=== PATIENT | male | born 1980 | race Caucasian/White ===

== ENCOUNTER 2019-05-03 22:22 | Emergency (ER) | payer SELFPAY ==
[~2019-05-03] VITALS: Ht 172.7 cm; Wt 72.6 kg
--- NOTE | 2019-05-03 22:29 | NUR ---
PT PATRICK FROM STREET, FOUND SLEEPING ON BUS. +ETOH. PT OPENS EYES TO PAINFUL STIMULI. VITAL SIGNS STABLE. RESPIRATIONS EVEN AND UNLABORED. SKIN WARM AND INTACT. NO ACUTE DISTRESS NOTED AT THIS TIME. PLACED ON CONTINUOUS ROBOTICS ENGINEER, WILL CONTINUE TO MONITOR
--- NOTE | 2019-05-03 23:19 | NUR ---
FLOOR LAYER AT BEDSIDE FOR BLOOD DRAW
--- NOTE | 2019-05-03 23:21 | NUR ---
pt refused blood draw, falling back to sleep w/ resp even & unlabored, nad noted.
--- NOTE | 2019-05-04 00:30 | NUR ---
Pt agrees to blood draw, unable to provide urine sample at this time. Urinal provided. Instruct pt to provide urine as soon as able.
[2019-05-04 00:52] LABS: BASOPHILS % (AUTO) 0.5 % (0.0-2.0); EOSINOPHILS % (AUTO) 0.4 % (0.0-6.0); HEMATOCRIT 40 % (39-51); HEMOGLOBIN 13.5 g/dL (13.5-17.5); LYMPHOCYTES # (AUTO) 0.8 /CMM (0.8-4.8); LYMPHOCYTES % (AUTO) 11.1 % (20.0-44.0); MEAN CORPUSCULAR HGB CONC 34 g/dl (31.0-36.0); MEAN CORPUSCULAR VOLUME 95 fL (80-96); MONOCYTES # (AUTO) 0.2 /CMM (0.1-1.30); MONOCYTES % (AUTO) 2.8 % (2.0-12.0); NEUTROPHILS % (AUTO) 85.2 % (43.0-81.0); PLATELET COUNT (AUTO) 207 /CMM (150-450); RED BLOOD CELL COUNT(AUTO) 4.19 MIL/uL (4.5-6.0)
[2019-05-04 01:02] LABS: CALCIUM, SERUM 7.8 mg/dL (8.5-10.1); CREATININE 0.7 mg/dL (0.6-1.3); POTASSIUM 3.8 mmol/L (3.5-5.1)
[2019-05-04 01:07] LABS: ALBUMIN 3.1 g/dL (3.4-5.0); BILIRUBIN,DIRECT 0.1 mg/dL (0.0-0.2); BILIRUBIN,TOTAL 0.3 mg/dL (0.2-1.0); TOTAL PROTEIN, SERUM 6.7 g/dL (6.4-8.2)
[2019-05-04 01:08] LABS: SALICYLATE 1.1 mg/dL (2.8-20.0)
--- NOTE | 2019-05-04 01:28 | NUR ---
PT ON CONTINUOUS 2 L/MIN O2 VIA NC, PULSE-OX W/ CARDIAC MONITORING, LYING IN BED W/ RESP EVEN & UNLABORED, SNORING W/ NAD NOTED. BED LOW TO GROUND W/ SIDERAILS UP FOR SAFETY.
--- NOTE | 2019-05-04 02:25 | NUR ---
PT CONTINUES TO SLEEP W/ RESP EVEN & UNLABORED, NAD NOTED. ON CONTINUOUS MONITORING.
--- NOTE | 2019-05-04 05:36 | NUR ---
PT RESTING COMFORTABLY IN BED. VITAL SIGNS STABLE. NO ACUTE DISTRESS NOTED AT THIS TIME. STILL ON CONTINUOUS NECK FITTER AND PULSE OX, WILL CONTINUE TO MONITOR
--- NOTE | 2019-05-04 05:58 | NUR ---
URINE COLLECTED AND SENT TO LAB
[2019-05-04 06:02] LABS: APPEARANCE,URINE Clear (CLEAR); BILIRUBIN,URINE Negative (NEGATIVE); BLOOD, URINE Negative Ery/uL (NEGATIVE); COLOR,URINE Yellow (YELLOW); KETONES,URINE 15 (NEGATIVE); LEUKOCYTE ESTERASE ,URINE Negative (NEGATIVE); NITRITE, URINE Negative (NEGATIVE); PH,URINE 5.5 (5.0-8.0); PROTEIN,URINE Negative (NEGATIVE); UGLUCOSE Negative (NEGATIVE); UROBILINOGEN,URINE 0.2 EU/dL (0.2)
--- NOTE | 2019-05-04 06:22 | NUR ---
Patient ambulatory w/ steady gait, resp even & unlabored, denies any pain w/ nad noted. pt offered and refusing any referrals for shelters and requests to go back to community. IV removed. Catheter intact and site benign. Pressure and 4x4 applied to site. No bleeding noted.Patient discharged back to community in stable condition. Written and verbal after care instructions given. Patient verbalizes understanding of instruction.
[2019-05-04 06:23] VITALS: BP 148/90
[2019-05-04 08:07] LABS: BACTERIA,URINE None seen /HPF (None Seen); RBC,URINE NONE SEEN /HPF (0-2); SQUAMOUS EPITHELIAL CELL,UR Rare /HPF (None Seen); WBC,URINE 0-2 /HPF (0-3)
== END 2019-05-04 06:23 | disposition home or self-care (01) ==
LOC: EDBD 22:25 → ER 22:25
DX: F10.129 Alcohol abuse with intoxication, unspecified (principal); Y90.9 Presence of alcohol in blood, level not specified
CPT/HCPCS: 36415; 80048; 80076; 80305; 80307; 80329; 81001; 85025; 99283; G0480; 81000-TC

== ENCOUNTER 2019-05-17 04:43 | Emergency (ER) | payer OTHER ==
[~2019-05-17] VITALS: Ht 182.9 cm; Wt 104.3 kg
--- NOTE | 2019-05-17 05:17 | NUR ---
XRAY AT BEDSIDE.
--- NOTE | 2019-05-17 05:22 | NUR ---
FUNMI WALKED IN. AAOX3. BREATHING EVEN AND UNLABORED. AMBULATORY. C/O SUICIDAL IDEATION. PT VERBALIZED THAT HE HAS BEEN DRINKING SIONCE YESTERDAY AT ATTEMPTED TO RUN INTO TRAFFIC. PT DOES NOT RECALL ANYTHING AFTER THAT. PT RECALL WAKIN GUP AT THE POLICE STATION ON DRUNK HOLD. PT IS ALSO COMPLAINING OF RIGHT HAND PAIN UPON WAKING UP. NOTED BUMB ON THE POSTERIOR LATER ASPECT OF THE HAND WHICH IS PAINFUL TO TOUCH. R HAND 5TH DIGIT IS BEND WITH LIMITED ROM NOTED. TO ER BED 13. AWITING ORDERS.
[2019-05-17 05:25] LABS: BASOPHILS # (AUTO) 0.1 /CMM (0.0-0.2); BASOPHILS % (AUTO) 0.7 % (0.0-2.0); EOSINOPHILS % (AUTO) 0.4 % (0.0-6.0); HEMATOCRIT 48 % (39-51); HEMOGLOBIN 16.1 g/dL (13.5-17.5); LYMPHOCYTES # (AUTO) 2.2 /CMM (0.8-4.8); LYMPHOCYTES % (AUTO) 14.7 % (20.0-44.0); MEAN CORPUSCULAR HGB CONC 34 g/dl (31.0-36.0); MEAN CORPUSCULAR VOLUME 95 fL (80-96); MONOCYTES # (AUTO) 1.1 /CMM (0.1-1.30); MONOCYTES % (AUTO) 7.1 % (2.0-12.0); NEUTROPHILS # (AUTO) 11.6 /CMM (1.8-8.9); NEUTROPHILS % (AUTO) 77.1 % (43.0-81.0); PLATELET COUNT (AUTO) 266 /CMM (150-450); RED BLOOD CELL COUNT(AUTO) 5.02 MIL/uL (4.5-6.0)
--- NOTE | 2019-05-17 05:25 | NUR ---
PROPERTY WORKER AT BEDSIDE FOR BLOOD DRAW.
[2019-05-17 05:39] LABS: ALANINE AMINOTRANSFERASE 62 U/L (12-78); ALKALINE PHOSPHATASE 142 U/L (46-116); ASPARTATE AMINOTRANSFERASE 35 U/L (15-37); BILIRUBIN,DIRECT 0.1 mg/dL (0.0-0.2); BILIRUBIN,TOTAL 0.6 mg/dL (0.2-1.0); CALCIUM, SERUM 9.2 mg/dL (8.5-10.1); CARBON DIOXIDE 21 mmol/L (21-32); CHLORIDE 103 mmol/L (98-107); CREATININE 0.9 mg/dL (0.6-1.3); GLUCOSE 101 mg/dL (74-106); POTASSIUM 3.8 mmol/L (3.5-5.1); SODIUM SERUM 138 mmol/L (136-145); TOTAL PROTEIN, SERUM 8.3 g/dL (6.4-8.2); UREA NITROGEN, BLOOD 11 mg/dL (7-18)
[2019-05-17 05:41] LABS: ACETAMINOPHEN 0 ug/ml (10-30); ALCOHOL, BLOOD < 3 mg/dL (0-0)
[2019-05-17] MEDS ORDERED: IBUPROFEN 600 MG TABLET PO ONE ×2 (06:47→07:00)
--- NOTE | 2019-05-17 07:46 | NUR ---
DORETHA CAM CALLED FOR A 1:1 SITTER
--- NOTE | 2019-05-17 07:55 | NUR ---
1:1 SITTER AT BEDSIDE
--- NOTE | 2019-05-17 07:55 | NUR ---
WANDED BY SECURITY
--- NOTE | 2019-05-17 09:25 | NUR ---
ORACLE ETL DEVELOPER TERESA EDWARDS AT BEDSIDE
--- NOTE | 2019-05-17 10:05 | NUR ---
PROVIDED W MEAL TRAY, PT TOLERATING PO WELL.
[2019-05-17 11:26] LABS: BILIRUBIN,URINE Negative (NEGATIVE); BLOOD, URINE Negative Ery/uL (NEGATIVE); COLOR,URINE Yellow (YELLOW); KETONES,URINE Negative (NEGATIVE); LEUKOCYTE ESTERASE ,URINE Negative (NEGATIVE); NITRITE, URINE Negative (NEGATIVE); PH,URINE 5.5 (5.0-8.0); PROTEIN,URINE Trace mg/dl (NEGATIVE); UGLUCOSE Negative (NEGATIVE); UROBILINOGEN,URINE 0.2 EU/dL (0.2)
[2019-05-17 11:27] LABS: APPEARANCE,URINE Hazy (CLEAR)
[2019-05-17 11:34] LABS: BACTERIA,URINE None seen /HPF (None Seen); RBC,URINE 0-1 /HPF (0-2); SQUAMOUS EPITHELIAL CELL,UR Rare /HPF (None Seen); WBC,URINE 0-2 /HPF (0-3)
[2019-05-17 11:35] LABS: URINE AMORPHOUS URATE Moderate /HPF (None Seen)
--- NOTE | 2019-05-17 11:54 | NUR ---
FAXED URINE TOXICOLOGY REPORT TO [facility] [phone]
--- NOTE | 2019-05-17 12:17 | NUR ---
PT ACCEPTED TO DR. VANN [phone] Addendum: 05/17/19 at 1237 by CATHERINE PT [facility]ED TO [facility]
--- NOTE | 2019-05-17 12:42 | NUR ---
CALLED [facility] FOR TRANSPORT ETA OF WAS 1415 GIVEN. TRIP#[id number]
[2019-05-17 13:54] VITALS: BP 124/70
--- NOTE | 2019-05-17 14:44 | NUR ---
REPORT GIVEN TO JIGNESH NURSE AT [facility]. PT LEFT VIA [facility]UL[facility], PT LEFT IN STABLE CONDITION, VSS, NAD NOTED, REPORT GIVEN TO AMBULANCE STAFF.
== END 2019-05-17 14:47 | disposition home or self-care (01) ==
LOC: ER 04:47
DX: R45.851 Suicidal ideations (principal); S62.326A Displaced fracture of shaft of fifth metacarpal bone, right hand, initial encounter for closed fracture; Z98.890 Other specified postprocedural states; Z59.0 Homelessness; X58.XXXA Exposure to other specified factors, initial encounter; Y93.89 Activity, other specified; Y92.89 Other specified places as the place of occurrence of the external cause; Y99.8 Other external cause status
CPT/HCPCS: 29125; 36415; 73130; 80048; 80076; 80305; 80307; 80329; 81001; 85025; 99284; G0480; 81000-TC

== ENCOUNTER 2019-09-09 21:21 | Emergency (ER) | payer OTHER ==
[~2019-09-09] VITALS: Ht 182.9 cm; Wt 95.7 kg
--- NOTE | 2019-09-09 21:35 | NUR ---
PT BIB EMS C/O BILATERAL EYE PAIN, SI WITH PLAN TO "I WANT TO GET KILLED BY FIGHTING PEOPLE." PT AGGRESSIVE. PER RA +ETOH.
--- NOTE | 2019-09-09 22:39 | NUR ---
PT SITTING UP IN BED CALM AND COOPERATIVE. PT DENIES SI OR HI AT THIS TIME. PT STATES "THE RADIOLOGIC TECH IN THE HALLWAYS WAS ANNOYING ME BUT ALSO BECAUSE I WAS DRUNK, I DIDNT REALLY MEAN WHAT I SAID."
--- NOTE | 2019-09-09 23:52 | NUR ---
PT AAOX4. DENIES SI/HI AT THIS TIME. PER DR. SAM, MEDICALLY CLEARED FOR DISCHARGE. Patient discharged to home in stable condition. Written and verbal after care instructions given. Patient verbalizes understanding of instruction.Pt ambulatory with a steady gait
[2019-09-09 23:53] VITALS: BP 118/74
== END 2019-09-09 23:53 | disposition home or self-care (01) ==
LOC: ER 21:24
DX: F10.129 Alcohol abuse with intoxication, unspecified (principal); Z98.890 Other specified postprocedural states; Z59.0 Homelessness; Y90.9 Presence of alcohol in blood, level not specified

== ENCOUNTER 2019-11-14 17:42 | Emergency (ER) | payer OTHER ==
[~2019-11-14] VITALS: Ht 185.4 cm; Wt 113.4 kg
[2019-11-14] MEDS ORDERED: diphenhydrAMINE HCL 50 MG/ML VIAL IM ONE (18:00)
[2019-11-14] MEDS ORDERED: HALOPERIDOL LACTATE INJ 5 MG/ML VIAL IM ONE (18:00)
[2019-11-14] MEDS ORDERED: LORAZEPAM INJ 2 MG/ML VIAL IM ONE (18:00)
--- NOTE | 2019-11-14 18:00 | NUR ---
PATRICK88 & PD, FOUND PT RUNNING IN THE MIDDLE OF STREET SCREAMING TO ER BED 13, VSS.
[2019-11-14] MEDS ORDERED: diphenhydrAMINE HCL 50 MG/ML VIAL ONE (18:01)
[2019-11-14] MEDS ORDERED: HALOPERIDOL LACTATE INJ 5 MG/ML VIAL ONE (18:01)
[2019-11-14] MEDS ORDERED: LORAZEPAM INJ 2 MG/ML VIAL ONE (18:02)
[2019-11-14 18:36] LABS: BASOPHILS % (AUTO) 0.5 % (0.0-2.0); EOSINOPHILS % (AUTO) 1.8 % (0.0-6.0); HEMATOCRIT 40 % (39-51); HEMOGLOBIN 13.3 g/dL (13.5-17.5); LYMPHOCYTES # (AUTO) 1.9 /CMM (0.8-4.8); LYMPHOCYTES % (AUTO) 19.6 % (20.0-44.0); MEAN CORPUSCULAR HGB CONC 33 g/dl (31.0-36.0); MEAN CORPUSCULAR VOLUME 94 fL (80-96); MONOCYTES # (AUTO) 0.5 /CMM (0.1-1.30); MONOCYTES % (AUTO) 4.9 % (2.0-12.0); NEUTROPHILS % (AUTO) 73.2 % (43.0-81.0); PLATELET COUNT (AUTO) 220 /CMM (150-450); RED BLOOD CELL COUNT(AUTO) 4.26 MIL/uL (4.5-6.0); WHITE BLOOD COUNT (AUTO) 9.6 K/uL (4.3-11.0)
[2019-11-14 19:33] LABS: APPEARANCE,URINE CLEAR (CLEAR); BILIRUBIN,URINE NEGATIVE (NEGATIVE); BLOOD, URINE TRACE Ery/uL (NEGATIVE); COLOR,URINE YELLOW (YELLOW); KETONES,URINE NEGATIVE (NEGATIVE); LEUKOCYTE ESTERASE ,URINE NEGATIVE (NEGATIVE); NITRITE, URINE NEGATIVE (NEGATIVE); PROTEIN,URINE NEGATIVE (NEGATIVE); UGLUCOSE NEGATIVE (NEGATIVE); UROBILINOGEN,URINE 0.2 EU/dL (0.2)
[2019-11-14 19:37] LABS: BACTERIA,URINE Rare /HPF (None Seen); WBC,URINE 0-2 /HPF (0-3)
[2019-11-14 19:38] LABS: SQUAMOUS EPITHELIAL CELL,UR 0-2 /HPF (None Seen)
[2019-11-14 21:01] LABS: ALBUMIN 3.6 g/dL (3.4-5.0); BILIRUBIN,DIRECT 0.1 mg/dL (0.0-0.2); BILIRUBIN,TOTAL 0.3 mg/dL (0.2-1.0); CALCIUM, SERUM 8.3 mg/dL (8.5-10.1); CREATININE 0.9 mg/dL (0.6-1.3); POTASSIUM 3.4 mmol/L (3.5-5.1); TOTAL PROTEIN, SERUM 7.3 g/dL (6.4-8.2)
[2019-11-14] MEDS ORDERED: POTASSIUM CHLORIDE 20 MEQ TAB.PRT.SR PO ONE (22:00)
[2019-11-15] MEDS ORDERED: POTASSIUM CHLORIDE 20 MEQ TAB.PRT.SR PO ONE (01:00)
--- NOTE | 2019-11-15 04:20 | NUR ---
Patient is resting comfortably in bed with eyes closed. Easily aroused. VSS
--- NOTE | 2019-11-15 04:56 | NUR ---
Note petrosaleah in EDM - 11/15/19 at 0541 by KIMBERLY PT AAOX4 NO ACUTE DISTRESS NOTED, RESP EVEN AND UNLABORED. PT DENIES PAIN OR DISCOMFORT AT THIS TIME. PT DENIES BEING HOMELESS AND STATES THAT HE LIVES IN [place]. PENDING DISCHARGE.
--- NOTE | 2019-11-15 05:06 | NUR ---
PT AAOX4 NO ACUTE DISTRESS NOTED, RESP EVEN AND UNLABORED. PT DENIES PAIN OR DISCOMFORT AT THIS TIME.
--- NOTE | 2019-11-15 05:19 | NUR ---
mimi paez at bedside to re-eval pt. pt denies SI/HI at this time. pt states "i'm sorry i get like that when i get drunk".
--- NOTE | 2019-11-15 05:42 | NUR ---
Patient discharged to home in stable condition. Written and verbal after care instructions given. Patient verbalizes understanding of instruction. pt aaox4 no acute distress noted, resp even and unlabored. tap card provided to pt per pt request. care package provided to pt (jello, brittney cracker, juices and pudding).
[2019-11-15 05:44] VITALS: BP 134/68
== END 2019-11-15 05:45 | disposition home or self-care (01) ==
LOC: ER 17:44
DX: F28 Other psychotic disorder not due to a substance or known physiological condition (principal); D64.9 Anemia, unspecified; E87.6 Hypokalemia; F10.129 Alcohol abuse with intoxication, unspecified; R94.5 Abnormal results of liver function studies; Z98.890 Other specified postprocedural states; Z59.0 Homelessness; Y90.8 Blood alcohol level of 240 mg/100 ml or more
CPT/HCPCS: 36415; 80048; 80076; 80305; 80307; 80329; 81001; 85025; 96372 ×2; 99284; G0480; J1200; J1630; J2060; 81000-TC

== ENCOUNTER 2020-05-25 03:37 | Emergency (ER) | payer OTHER ==
[~2020-05-25] VITALS: Ht 182.9 cm; Wt 95.3 kg
--- NOTE | 2020-05-25 03:59 | NUR ---
BIBS FOR SI PLANNING TO RUN INTO TRAFFIC. PT AMBULATORY TO BED 14. ALERT AND OX4. NO DISTRESS. PT WAS GOWBNED UP PLACED ON MONITOR. ALL BELONGING TAKEN AWAY IN A LOCKER PT REMAINED ON CLOSE SUPERVISION FOR SAFETY . WILL CONT TO MONITOR,
[2020-05-25 04:19] LABS: APPEARANCE,URINE Clear (CLEAR); BILIRUBIN,URINE SMALL (NEGATIVE); BLOOD, URINE Negative Ery/uL (NEGATIVE); KETONES,URINE Negative (NEGATIVE); LEUKOCYTE ESTERASE ,URINE Negative (NEGATIVE); NITRITE, URINE Negative (NEGATIVE); PH,URINE 5.5 (5.0-8.0); PROTEIN,URINE Trace mg/dl (NEGATIVE); UGLUCOSE Negative (NEGATIVE); UROBILINOGEN,URINE 0.2 EU/dL (0.2)
--- NOTE | 2020-05-25 04:20 | NUR ---
RESTORATION ECOLOGIST AT BEDSIDE FOR BLOOD DRAW
[2020-05-25 04:28] LABS: COLOR,URINE DARK YELLOW (YELLOW)
[2020-05-25 04:30] LABS: BASOPHILS % (AUTO) 0.4 % (0.0-2.0); EOSINOPHILS % (AUTO) 0.8 % (0.0-6.0); HEMATOCRIT 42 % (39-51); HEMOGLOBIN 14.2 g/dL (13.5-17.5); LYMPHOCYTES # (AUTO) 2.1 /CMM (0.8-4.8); LYMPHOCYTES % (AUTO) 23.3 % (20.0-44.0); MEAN CORPUSCULAR HGB CONC 34 g/dl (31.0-36.0); MEAN CORPUSCULAR VOLUME 96 fL (80-96); MONOCYTES # (AUTO) 0.4 /CMM (0.1-1.30); NEUTROPHILS # (AUTO) 6.3 /CMM (1.8-8.9); NEUTROPHILS % (AUTO) 70.5 % (43.0-81.0); PLATELET COUNT (AUTO) 229 /CMM (150-450); RED BLOOD CELL COUNT(AUTO) 4.39 MIL/uL (4.5-6.0); WHITE BLOOD COUNT (AUTO) 8.9 K/uL (4.3-11.0)
[2020-05-25 04:39] LABS: CALCIUM, SERUM 8.7 mg/dL (8.5-10.1); CARBON DIOXIDE 27 mmol/L (21-32); CHLORIDE 104 mmol/L (98-107); CREATININE 0.9 mg/dL (0.6-1.3); GLUCOSE 96 mg/dL (74-106); POTASSIUM 3.9 mmol/L (3.5-5.1); SODIUM SERUM 140 mmol/L (136-145); UREA NITROGEN, BLOOD 10 mg/dL (7-18)
[2020-05-25 04:53] LABS: ALANINE AMINOTRANSFERASE 71 U/L (12-78); ALBUMIN 3.8 g/dL (3.4-5.0); ALCOHOL, BLOOD < 3 mg/dL (0-0); ALKALINE PHOSPHATASE 139 U/L (46-116); ASPARTATE AMINOTRANSFERASE 34 U/L (15-37); BILIRUBIN,DIRECT 0.3 mg/dL (0.0-0.2); TOTAL PROTEIN, SERUM 7.5 g/dL (6.4-8.2)
[2020-05-25 04:55] LABS: ACETAMINOPHEN < 2 ug/ml (10-30); SALICYLATE 0.1 mg/dL (2.8-20.0)
--- NOTE | 2020-05-25 05:11 | NUR ---
PT PROVIDED WITH WATER. VSS.
[2020-05-25 05:20] LABS: BACTERIA,URINE Many /HPF (None Seen); MUCUS,URINE Many /LPF (None Seen); RBC,URINE 0-2 /HPF (0-2); SQUAMOUS EPITHELIAL CELL,UR Few /HPF (None Seen); WBC,URINE 0-2 /HPF (0-3)
--- NOTE | 2020-05-25 06:04 | NUR ---
PATIENT ASLEEP. VSS.
--- NOTE | 2020-05-25 06:18 | NUR ---
CLINICAL INFOR WAS FAXED OVER TO [facility].
--- NOTE | 2020-05-25 09:34 | NUR ---
DR JOHNSON AT BEDSIDE. PATIENT DENIES HAVING SUICIDAL IDEATION AT THIS TIME.
--- NOTE | 2020-05-25 09:59 | NUR ---
PROVIDED W FOOD TRAY, TOLERATING PO WELL.
--- NOTE | 2020-05-25 10:10 | NUR ---
Patient given written and verbal discharge instructions. Patient verbalizes understanding of instructions. Patient is ambulatory with steady gait. Refuses offer of skilled nursing placement. Patient given list of available shelters in surrounding area. Patient in proper clothing upon discharge, name band removed. All belongings returned.
[2020-05-25 10:13] VITALS: BP 126/69
== END 2020-05-25 10:14 | disposition home or self-care (01) ==
LOC: ER 03:37
DX: R45.851 Suicidal ideations (principal); F19.959 Other psychoactive substance use, unspecified with psychoactive substance-induced psychotic disorder, unspecified; F17.200 Nicotine dependence, unspecified, uncomplicated; Z98.890 Other specified postprocedural states; Z59.0 Homelessness
CPT/HCPCS: 36415; 80048; 80076; 80305; 80307; 80329; 81001; 85025; 87086; 99283; G0480; 81000-TC

== ENCOUNTER 2020-06-12 06:50 | Emergency (ER) | payer OTHER ==
[~2020-06-12] VITALS: Ht 182.9 cm; Wt 104.3 kg
--- NOTE | 2020-06-12 07:08 | NUR ---
PT AAOX4. AMBULATORY WITH STEADY GAIT. BIBSELF C/O SI WITH PLAN TO RUN INTO TRAFFIC. PT PLACED IN GOWN, ON MONITOR, AND PULSE OX. VSS. BELONINGS PALCED IN LOCKER. SITTER AT BEDSIDE. URINE COLLECTED AND SENT TO LAB.
[2020-06-12 07:32] LABS: APPEARANCE,URINE CLEAR (CLEAR); BILIRUBIN,URINE NEGATIVE (NEGATIVE); BLOOD, URINE NEGATIVE Ery/uL (NEGATIVE); COLOR,URINE YELLOW (YELLOW); KETONES,URINE NEGATIVE (NEGATIVE); LEUKOCYTE ESTERASE ,URINE NEGATIVE (NEGATIVE); NITRITE, URINE NEGATIVE (NEGATIVE); PH,URINE 5.5 (5.0-8.0); PROTEIN,URINE NEGATIVE (NEGATIVE); UGLUCOSE NEGATIVE (NEGATIVE); UROBILINOGEN,URINE 0.2 EU/dL (0.2)
[2020-06-12 07:35] LABS: BASOPHILS # (AUTO) 0.1 /CMM (0.0-0.2); BASOPHILS % (AUTO) 0.7 % (0.0-2.0); EOSINOPHILS % (AUTO) 1.6 % (0.0-6.0); HEMATOCRIT 44 % (39-51); HEMOGLOBIN 14.5 g/dL (13.5-17.5); LYMPHOCYTES % (AUTO) 24.4 % (20.0-44.0); MEAN CORPUSCULAR HGB CONC 33 g/dl (31.0-36.0); MEAN CORPUSCULAR VOLUME 97 fL (80-96); MONOCYTES # (AUTO) 0.4 /CMM (0.1-1.30); MONOCYTES % (AUTO) 4.9 % (2.0-12.0); NEUTROPHILS # (AUTO) 5.7 /CMM (1.8-8.9); NEUTROPHILS % (AUTO) 68.4 % (43.0-81.0); PLATELET COUNT (AUTO) 267 /CMM (150-450); RED BLOOD CELL COUNT(AUTO) 4.57 MIL/uL (4.5-6.0); WHITE BLOOD COUNT (AUTO) 8.3 K/uL (4.3-11.0)
--- NOTE | 2020-06-12 07:53 | NUR ---
[facility] CALLED,CJ SAID THEIR FACILITIES ARE AT FULL CAPACITY
[2020-06-12 07:54] LABS: ALANINE AMINOTRANSFERASE 47 U/L (12-78); ALBUMIN 3.9 g/dL (3.4-5.0); ALCOHOL, BLOOD < 3 mg/dL (0-0); ALKALINE PHOSPHATASE 112 U/L (46-116); ASPARTATE AMINOTRANSFERASE 25 U/L (15-37); BILIRUBIN,DIRECT 0.1 mg/dL (0.0-0.2); BILIRUBIN,TOTAL 0.4 mg/dL (0.2-1.0); CALCIUM, SERUM 8.8 mg/dL (8.5-10.1); CARBON DIOXIDE 28 mmol/L (21-32); CHLORIDE 104 mmol/L (98-107); CREATININE 0.8 mg/dL (0.6-1.3); GLUCOSE 84 mg/dL (74-106); POTASSIUM 3.4 mmol/L (3.5-5.1); SODIUM SERUM 141 mmol/L (136-145); TOTAL PROTEIN, SERUM 7.7 g/dL (6.4-8.2); UREA NITROGEN, BLOOD 6 mg/dL (7-18)
[2020-06-12 07:58] LABS: ACETAMINOPHEN < 10 ug/ml (10-30); SALICYLATE < 2.8 mg/dL (2.8-20.0)
--- NOTE | 2020-06-12 10:46 | NUR ---
TOMASA was informed by JIMMY San in ED regarding pt requesting voluntary psychiatric admission to [facility]. Per MD notes, pt is a 39-year-old male presented to the emergency room complaining of suicidal ideation. Patient states that he has been noncompliant with his psychiatric medications for many months now. He admits to drinking alcohol. He states that he feels imminently suicidal. He has had previous suicide attempts in the past and previous hospitalizations with the last one approximately 7 months ago. TOMASA contacted [facility] to initiate voluntary admission. Per [facility], they will have a bed for the pt, however it will be later in the day due to delay in discharges at [facility]. TOMASA conducted chart review and faxed clinicals to intake at [facility].
--- NOTE | 2020-06-12 14:12 | NUR ---
CARPET INSTALLATION SPECIALIST received a call from Seferino from [facility] intake. pt has been accepted to [facility]. Report needs to be called to retail pharmacy technicianJES Hillman at x [phone]. Accepting Dr Lawler/Dr. Medina.
--- NOTE | 2020-06-12 14:24 | NUR ---
Sefer[facility] from [facility]. pt has been accepted to [facility]. Report needs to be called to nut orchardistJES Hillman at x [phone]. Accepting Dr Lawler/Dr. Medina.
--- NOTE | 2020-06-12 14:45 | NUR ---
[id number] CALLED [phone] JENSEN WILL CALL US WITH ETA REF # [id number]
--- NOTE | 2020-06-12 15:24 | NUR ---
[facility]MINS PER WARNER.
[2020-06-12 16:52] VITALS: BP 118/71
--- NOTE | 2020-06-12 16:53 | NUR ---
patient picked up by private ambulance oing to [facility] in no distress.
== END 2020-06-12 16:53 ==
LOC: ER 06:52
DX: R45.851 Suicidal ideations (principal); F19.10 Other psychoactive substance abuse, uncomplicated; F32.9 Major depressive disorder, single episode, unspecified; Z98.890 Other specified postprocedural states; Z59.0 Homelessness
CPT/HCPCS: 36415; 80048; 80076; 80305; 80307; 80329; 81001; 85025; 99285; G0480; 81000-TC

== ENCOUNTER 2020-07-10 05:27 | Emergency (ER) | payer OTHER ==
[~2020-07-10] VITALS: Ht 182.9 cm; Wt 102.1 kg
--- NOTE | 2020-07-10 05:40 | NUR ---
PT AAOX4, BIBSELF C/O SI TO JUMP INFRONT OF TRAFFIC, -HI. PLACED IN BED 13, ON MONITOR AND PULSE OX. VSS. PLACED IN GOWN, BELONINGS IN LOCKER. SITTER AT BEDSIDE.
--- NOTE | 2020-07-10 05:41 | NUR ---
URINE COLLECTED AND SENT TO LAB
[2020-07-10 05:58] LABS: BASOPHILS # (AUTO) 0.1 /CMM (0.0-0.2); BASOPHILS % (AUTO) 0.6 % (0.0-2.0); EOSINOPHILS % (AUTO) 1.8 % (0.0-6.0); HEMATOCRIT 45 % (39-51); HEMOGLOBIN 14.7 g/dL (13.5-17.5); LYMPHOCYTES # (AUTO) 2.2 /CMM (0.8-4.8); LYMPHOCYTES % (AUTO) 21.3 % (20.0-44.0); MEAN CORPUSCULAR HGB CONC 33 g/dl (31.0-36.0); MEAN CORPUSCULAR VOLUME 96 fL (80-96); MONOCYTES # (AUTO) 0.6 /CMM (0.1-1.30); NEUTROPHILS # (AUTO) 7.3 /CMM (1.8-8.9); NEUTROPHILS % (AUTO) 70.3 % (43.0-81.0); PLATELET COUNT (AUTO) 221 /CMM (150-450); RED BLOOD CELL COUNT(AUTO) 4.67 MIL/uL (4.5-6.0); WHITE BLOOD COUNT (AUTO) 10.4 K/uL (4.3-11.0)
[2020-07-10 05:59] LABS: APPEARANCE,URINE CLEAR (CLEAR); BILIRUBIN,URINE NEGATIVE (NEGATIVE); BLOOD, URINE NEGATIVE Ery/uL (NEGATIVE); COLOR,URINE YELLOW (YELLOW); KETONES,URINE NEGATIVE (NEGATIVE); LEUKOCYTE ESTERASE ,URINE NEGATIVE (NEGATIVE); NITRITE, URINE NEGATIVE (NEGATIVE); PROTEIN,URINE NEGATIVE (NEGATIVE); UGLUCOSE NEGATIVE (NEGATIVE); UROBILINOGEN,URINE 0.2 EU/dL (0.2)
[2020-07-10 06:23] LABS: CALCIUM, SERUM 8.7 mg/dL (8.5-10.1); CARBON DIOXIDE 27 mmol/L (21-32); CHLORIDE 106 mmol/L (98-107); GLUCOSE 93 mg/dL (74-106); POTASSIUM 4.3 mmol/L (3.5-5.1); SODIUM SERUM 139 mmol/L (136-145); UREA NITROGEN, BLOOD 8 mg/dL (7-18)
[2020-07-10 06:28] LABS: ALANINE AMINOTRANSFERASE 81 U/L (12-78); ALBUMIN 3.8 g/dL (3.4-5.0); ALCOHOL, BLOOD < 3 mg/dL (0-0); ALKALINE PHOSPHATASE 126 U/L (46-116); ASPARTATE AMINOTRANSFERASE 62 U/L (15-37); BILIRUBIN,DIRECT 0.2 mg/dL (0.0-0.2); BILIRUBIN,TOTAL 0.8 mg/dL (0.2-1.0); TOTAL PROTEIN, SERUM 7.6 g/dL (6.4-8.2)
[2020-07-10 06:30] LABS: ACETAMINOPHEN < 2 ug/ml (10-30); SALICYLATE 0.2 mg/dL (2.8-20.0)
--- NOTE | 2020-07-10 07:01 | NUR ---
PT RESTING COMFORTABLY. PROVIDED WITH WATER AND MORE BLANKETS.
--- NOTE | 2020-07-10 07:22 | NUR ---
ASSESSED PT ON BED ASLEEP BUT EASILY AROUSABLE. PT IS AAOX3, NOT IN RESPIRATORY DISTRESS, V/S STABLE, KEPT RESTED AND COMFORTABLE. WILL CONTINUE TO MONITOR.
--- NOTE | 2020-07-10 07:33 | NUR ---
FOOD TRAY PROVIDED.
--- NOTE | 2020-07-10 08:37 | NUR ---
DIP DYER AT BEDSIDE FOR EVAL.
--- NOTE | 2020-07-10 08:44 | NUR ---
After School Tutor met with the pstient at bedside. Patient was alert and orientated x4. Patient was receptive to speaking with this SW. Patient was able to confirm demographics on the facesheet. Patient reports that he has been homeless and has had some trouble securing food stamps. Patient reports that he drinks an 18 pack of alcohol every single day. Patient also reports that he smokes marijuana "once in a while". Patient did not want to report to this SW why he was in the ED. Patient questioned SW and her education but SW redirected the conversation back to him. Patient stated "[facility] and they told me to come here". Patient reported very quickly that he wants to run into traffic and that would be the plan if he cannot go to [facility] from [facility]. SW faxed over clinicals to [facility] . SW will provide the patient resources to find a assisted, hygiene, food, and other mental health options. SW waiting on confirmation from [facility]. SW also noted that if she cannot be reached to call the ED directly at .
--- NOTE | 2020-07-10 12:39 | NUR ---
[facility]OT ACCEPTED AT [facility] [phone] GANDHI PER TAMIE CALL IN [phone]
--- NOTE | 2020-07-10 13:05 | NUR ---
CALLED TRANSPORT [id number] [phone] X2 AMBULIFE WILL PICKUP ETA IS 1345 PER AL.
--- NOTE | 2020-07-10 13:41 | NUR ---
REPORT GIVEN TO EMT FOR MOHSEN
--- NOTE | 2020-07-10 13:45 | NUR ---
REPORT GIVEN TO EDNA ANDRE AT [facility].
--- NOTE | 2020-07-10 13:46 | NUR ---
PATIENT A/OX4, AMBULATORY WITH STEADY GAIT. NO DISTRESS NOTED. NEEDS ATTENDED. KEPT COMFORTABLE. BELONGINGS GIVEN TO PATIENT.
[2020-07-10 13:47] VITALS: BP 118/65
== END 2020-07-10 13:44 ==
LOC: ER 05:28
DX: R45.851 Suicidal ideations (principal); F19.10 Other psychoactive substance abuse, uncomplicated; F17.200 Nicotine dependence, unspecified, uncomplicated; Z98.890 Other specified postprocedural states; Z59.0 Homelessness
CPT/HCPCS: 36415; 80048; 80076; 80305; 80307; 80329; 81001; 85025; 99285; G0480; 81000-TC

== ENCOUNTER 2021-08-17 08:40 | Emergency (ER) | payer OTHER ==
[~2021-08-17] VITALS: Ht 182.9 cm; Wt 100.7 kg
--- NOTE | 2021-08-17 08:56 | NUR ---
SI " RUN INTO TRAFFIC " REQUESTING TO GO TO [facility]. PT AAOX3, VSS. RR EVEN & UNLABORED. DENIES CP, SOB, DIZZINESS, N/V AT THIS TIME. PT SEEN & EVAL'D BY DR. CHACON. PT CALM & COOPERATIVE. SITTER AT BS & WILL CONT TO MONITOR.
--- NOTE | 2021-08-17 09:10 | NUR ---
COVID SWAB DONE AND SENT TO THE LAB
[2021-08-17 09:55] LABS: ALANINE AMINOTRANSFERASE 57 U/L (12-78); ALBUMIN 4.4 g/dL (3.4-5.0); ALCOHOL, BLOOD 189 mg/dL (0-0); ALKALINE PHOSPHATASE 102 U/L (46-116); ASPARTATE AMINOTRANSFERASE 46 U/L (15-37); BILIRUBIN,DIRECT 0.2 mg/dL (0.0-0.2); BILIRUBIN,TOTAL 0.5 mg/dL (0.2-1.0); CALCIUM, SERUM 8.4 mg/dL (8.5-10.1); CARBON DIOXIDE 29 mmol/L (21-32); CHLORIDE 101 mmol/L (98-107); CREATININE 0.7 mg/dL (0.6-1.3); GLUCOSE 92 mg/dL (74-106); POTASSIUM 3.5 mmol/L (3.5-5.1); SODIUM SERUM 139 mmol/L (136-145); TOTAL PROTEIN, SERUM 8.7 g/dL (6.4-8.2); UREA NITROGEN, BLOOD 8 mg/dL (7-18)
[2021-08-17 09:57] LABS: BILIRUBIN,URINE NEGATIVE (NEGATIVE); COLOR,URINE YELLOW (YELLOW); LEUKOCYTE ESTERASE ,URINE NEGATIVE (NEGATIVE); NITRITE, URINE NEGATIVE (NEGATIVE); PROTEIN,URINE NEGATIVE (NEGATIVE); UGLUCOSE NEGATIVE (NEGATIVE); UROBILINOGEN,URINE 0.2 EU/dL (0.2)
[2021-08-17 09:58] LABS: BASOPHILS # (AUTO) 0.1 K/uL (0.0-0.2); BASOPHILS % (AUTO) 0.4 % (0.0-2.0); EOSINOPHILS % (AUTO) 0.2 % (0.0-6.0); HEMATOCRIT 47 % (39-51); HEMOGLOBIN 15.9 g/dL (13.5-17.5); LYMPHOCYTES # (AUTO) 1.5 K/uL (0.8-4.8); LYMPHOCYTES % (AUTO) 12.4 % (20.0-44.0); MEAN CORPUSCULAR HGB CONC 34 g/dl (31.0-36.0); MEAN CORPUSCULAR VOLUME 96 fL (80-96); MONOCYTES # (AUTO) 0.6 K/uL (0.1-1.30); MONOCYTES % (AUTO) 5.4 % (2.0-12.0); NEUTROPHILS # (AUTO) 9.7 K/uL (1.8-8.9); NEUTROPHILS % (AUTO) 81.6 % (43.0-81.0); PLATELET COUNT (AUTO) 256 K/uL (150-450); RED BLOOD CELL COUNT(AUTO) 4.91 MIL/uL (4.5-6.0); WHITE BLOOD COUNT (AUTO) 11.9 K/uL (4.3-11.0)
[2021-08-17 10:04] LABS: ACETAMINOPHEN < 10 ug/ml (10-30)
[2021-08-17 10:09] LABS: RBC,URINE 0-2 /HPF (0-2)
[2021-08-17 10:10] LABS: BACTERIA,URINE Rare /HPF (None Seen); SQUAMOUS EPITHELIAL CELL,UR Rare /HPF (None Seen); WBC,URINE 0-2 /HPF (0-3)
--- NOTE | 2021-08-17 11:30 | NUR ---
SS consult SS consult requested for suicidal ideation with a plan and homelessness. Pt is a 41-year-old, male. SW met with pt at his bedside in the emergency department. Pt was alert and oriented x4. Pt presented with a depressed mood and anxious affect. Pt appeared appropriately dressed and somewhat disheveled. Per chart, pt presented to the hospital on 08/17/21 with complaints of suicidal ideation with a plan to run into traffic. Pt was requesting voluntary psychiatric admission. Pt stated that he is currently homeless and has been homeless for the last 2 weeks. Pt stated that he was recently incarcerated. Pt stated that he has no social support at this time. Pt receives General Relief and food stamps as a source of income. Pt reported that he drank "12 pack of beer this morning," and has been "binge drinking for the last 2 days." Pt stated that he is experiencing alcohol withdrawal symptoms and reported that he has been feeling "shaky." Pt denied hx of drug use. Per pt's toxicology report pt is positive for cannabis use. SW assessed pt's hx of mental illness and pt reported hx of Schizoaffective disorder and Bipolar Depression. Pt has not had access to psychotropic medications for his mental illness. Pt reported that he has a hx of hallucinations and stated, "I see shadows or hear voices." Pt denied current hallucinations. Pt reported current suicidal ideation with a plan to run into traiffic. Pt denied HI. Pt requested voluntary psychiatric admission. KALLIE offered the pt resources for outpatient mental health and homelessness. Pt declined the resources and stated, "I don't want them, I have all of that. I just want to go to the hospital." Pt signed the homeless waiver the SW filed waiver in the pt's chart. SW will fax clinicals to [facility], for review. PLAN: SW will fax clinicals to [facility], for review. SS will remain available as needed. RESOURCES OFFERED: Year-round shelters: [facility] [place] [address] [place] [address] ; [facility] [place] [address] [place] [address]; [facility] [id number] [facility]. [facility] [address] SPA 4 | [facility] Provider: [facility] Address: [address], [address] # of Beds: 48 Population Served: [facility] Provider: [facility] Serve Address: [address] [facility] [place], [address] # of Beds: 73 Population Served: Stefanyd [facility] 6 | [facility] Provider: [facility] Address: [address] [facility], [address] # of Beds: 63 Population Served: [facility] 3 | [facility] Provider: [facility] [place] Address: [address] [facility] [address] # of Beds: 75 Population Served: Stefanyd [facility] 8 | [facility] Provider: [facility] [place] Address: [address] [facility] [address] # of Beds: 80 Population Served: [facility] | [facility] Provider: [facility] [place] Address: [address] [place] [address], [address] # of Beds: 85 Population Served: [facility] 2 | [facility] Provider: [facility] Address: Confidential (please call for location) # of Beds: 52 Population Served: [facility] 4 | [facility] Provider: [facility] Address: [address] [facility], [address] # of Beds: 49 Population Served: [facility] Provider: [facility] Address: [address] [facility], [address] # of Beds: 27 Population Served: Stefany Hygiene: [facility]: [address] [place] ; [facility] [address] [facility] ; [facility] [address] . Food Resources: [place] [employer] [facility] at [facility]- [address]. [place]; [facility] Each [facility] ([facility]) [address] [place]; [facility] [address] [facility]; [facility] [address] Mental Health resources provided: [facility] [address] [place], [place] [address] ; [facility] [address] [facility] [address], [place], [place] [id number] ; [facility] [address] [facility] [place], [place] [id number] ; [facility] [address] [place], [place] [id number] Healthcare Clinics: [facility] [address] [facility], [address] [place]. [place] ; [facility] [address] [facility] [address] [place] [address]; [facility] [address] [facility] [place] [address] [phone]) [phone] Counseling--Outpatient [facility] [address] [facility], [address] [place], [place] [id number] (Specializes in in-depth psychotherapy for emotional distress: anxiety, depression, interpersonal conflicts, life transitions, childhood abuse) PSYCHIATRIC OUTPATIENT SERVICES [facility] Partial Hospitalization and Intensive Outpatient Program (Managed Care and [place] Only) [address] [facility] [phone] [facility] Partial Hospitalization and Outpatient Program [address] [place] [address] [facility] Partial Hospitalization and Outpatient Program [address] [place], [place] [id number] VAN YS [facility] [address] [facility]. [address] [place] [address] [facility] Partial Hospitalization and Outpatient Program [address] [place] [phone]
--- NOTE | 2021-08-17 11:35 | NUR ---
SS note Per pt request for voluntary psychiatric placement, SW faxed clinicals to [facility], for review.
--- NOTE | 2021-08-17 15:37 | NUR ---
TRANSFER INFO: PT GOING TO [facility], ACCEPTED BY DR FEDERICO ANDRE FOR REPORT [phone]
--- NOTE | 2021-08-17 15:40 | NUR ---
[facility] ETA [phone]
--- NOTE | 2021-08-17 18:00 | NUR ---
THE PATIENT IS DISCHARGED TO [facility] IN STABLE CONDITION VIA ARRANGED TRANSPO.
[2021-08-17 18:01] VITALS: BP 138/82
== END 2021-08-17 18:02 ==
LOC: ER 09:36
DX: R45.851 Suicidal ideations (principal); Z59.0 Homelessness; Z82.49 Family history of ischemic heart disease and other diseases of the circulatory system; Z20.822 Contact with and (suspected) exposure to COVID-19
CPT/HCPCS: 36415; 80048; 80076; 80143; 80307; 80320 ×2; 81001; 85025; 87426; 99285; C9803; G0480

== ENCOUNTER 2021-09-15 10:05 | Emergency (ER) | payer OTHER ==
[~2021-09-15] VITALS: Ht 182.9 cm; Wt 95.3 kg
[2021-09-15 10:18] VITALS: BP 121/78
--- NOTE | 2021-09-15 10:24 | NUR ---
Patient came in to the er c/o +SI "i want to run through traffic". On room air, breathing evenly and unlabored. Kept comfortable, will continue to monitor accordingly.
--- NOTE | 2021-09-15 10:57 | NUR ---
urine collected and sent to lab.
[2021-09-15 11:12] LABS: BILIRUBIN,URINE SMALL (NEGATIVE); COLOR,URINE YELLOW (YELLOW); LEUKOCYTE ESTERASE ,URINE Negative (NEGATIVE); NITRITE, URINE Negative (NEGATIVE); PH,URINE 5.5 (5.0-8.0); PROTEIN,URINE Trace mg/dl (NEGATIVE); UGLUCOSE Negative (NEGATIVE); UROBILINOGEN,URINE 0.2 EU/dL (0.2)
[2021-09-15 11:15] LABS: BACTERIA,URINE Rare /HPF (None Seen); RBC,URINE NONE SEEN /HPF (0-2); SQUAMOUS EPITHELIAL CELL,UR Few /HPF (None Seen); WBC,URINE NONE SEEN /HPF (0-3)
[2021-09-15 11:25] LABS: CALCIUM, SERUM 8.4 mg/dL (8.5-10.1); CARBON DIOXIDE 24 mmol/L (21-32); CHLORIDE 106 mmol/L (98-107); CREATININE 0.8 mg/dL (0.6-1.3); GLUCOSE 98 mg/dL (74-106); POTASSIUM 3.5 mmol/L (3.5-5.1); SODIUM SERUM 144 mmol/L (136-145); UREA NITROGEN, BLOOD 8 mg/dL (7-18)
[2021-09-15 11:27] LABS: BASOPHILS # (AUTO) 0.1 K/uL (0.0-0.2); BASOPHILS % (AUTO) 0.9 % (0.0-2.0); EOSINOPHILS % (AUTO) 0.1 % (0.0-6.0); HEMATOCRIT 44 % (39-51); HEMOGLOBIN 14.7 g/dL (13.5-17.5); LYMPHOCYTES # (AUTO) 2.2 K/uL (0.8-4.8); MEAN CORPUSCULAR HGB CONC 34 g/dl (31.0-36.0); MEAN CORPUSCULAR VOLUME 95 fL (80-96); MONOCYTES # (AUTO) 0.7 K/uL (0.1-1.30); MONOCYTES % (AUTO) 6.9 % (2.0-12.0); NEUTROPHILS # (AUTO) 6.5 K/uL (1.8-8.9); NEUTROPHILS % (AUTO) 69.1 % (43.0-81.0); PLATELET COUNT (AUTO) 293 K/uL (150-450); RED BLOOD CELL COUNT(AUTO) 4.57 MIL/uL (4.5-6.0); WHITE BLOOD COUNT (AUTO) 9.5 K/uL (4.3-11.0)
[2021-09-15 11:31] LABS: ALANINE AMINOTRANSFERASE 68 U/L (12-78); ALBUMIN 3.9 g/dL (3.4-5.0); ALCOHOL, BLOOD 53 mg/dL (0-0); ALKALINE PHOSPHATASE 111 U/L (46-116); ASPARTATE AMINOTRANSFERASE 37 U/L (15-37); BILIRUBIN,DIRECT 0.1 mg/dL (0.0-0.2); BILIRUBIN,TOTAL 0.3 mg/dL (0.2-1.0)
[2021-09-15 11:35] LABS: ACETAMINOPHEN < 2 ug/ml (10-30)
--- NOTE | 2021-09-15 14:29 | NUR ---
CLINICALS FAXED TO [facility].
--- NOTE | 2021-09-15 19:10 | NUR ---
Patient accepted at [facility] under Dr. Taylor [phone] ext [phone] after 8pm
--- NOTE | 2021-09-15 19:12 | NUR ---
[facility] CALLED ETA 2030 PER LANETTE.
--- NOTE | 2021-09-15 21:00 | NUR ---
PT IS BEING PICKED UP BUT PT LEFT WITHOUT TELLING STAFF.
== END 2021-09-15 21:00 | disposition left against medical advice (07) ==
LOC: ER 10:08
DX: R45.851 Suicidal ideations (principal); Z59.00 Homelessness unspecified; Z53.29 Procedure and treatment not carried out because of patient's decision for other reasons
CPT/HCPCS: 36415; 80048; 80076; 80143; 80307; 80320; 81001; 85025; 87426; 99285; C9803; G0480